=== PATIENT | female | born 1980 | race American Indian/Alaskan Native ===

== ENCOUNTER 2020-04-27 12:18 | Emergency (ER) | payer OTHER, SELFPAY ==
[2020-04-27 12:30] VITALS: BP 131/79; PULSE 133; RESP 16; TEMP 36.9; O2SAT 97; BMI 34.0
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
[2020-04-27] MEDS: IBUPROFEN 400 MG TABLET PO (13:00)
[2020-04-27] MEDS: ACETAMINOPHEN 325 MG TABLET 975 MG PO (13:00)
[2020-04-27] MEDS: TET,DIPH,PERTUSS(ACELL),VAC/PF 0.5 ML SYRINGE IM (13:00)
[2020-04-27 13:08] VITALS: PULSE 110; RESP 18; O2SAT 98
[2020-04-27 13:36] VITALS: PULSE 104; RESP 18; O2SAT 98
== END 2020-04-27 13:36 | disposition home or self-care (01) ==
PROVIDERS: Emergency Provider Nurse Practitioner
DX: S01.112A Laceration without foreign body of left eyelid and periocular area, initial encounter (principal); W25.XXXA Contact with sharp glass, initial encounter; Z23 Encounter for immunization
CPT/HCPCS: 90471; 99283; 99284; 90715